=== PATIENT | male | born 1955 | race Caucasian/White ===

== ENCOUNTER 2017-06-12 17:45 | Inpatient (IN) | payer MEDICARE ==
[~2017-06-12] VITALS: Ht 167.6 cm; Wt 62.8 kg
--- NOTE | ~2017-06-12 | CON ---
PATIENT'S NAME: MARK CRISOSTOMO [facility] AGE: 61 Y [address] ROOM: [place] [address] LOCATION: GICU ADMIT DATE: 06/12/2017 Consultation DISCHARGE DATE: FAMILY PHYSICIAN: Radha Hicks DO ATTENDING PHYSICIAN: VIVI SHARP Date of consultation :06/12/2017 HISTORY OF PRESENT ILLNESS: A 61-year-old male found unresponsive, was started on CPR immediately by the bystanders. EMS was called, and he was taken to the nearest ED where he got intubated and had right subclavian line placed. He was started on multiple pressors, Levophed, dopamine, and epinephrine. The time to achieve return of spontaneous circulation was approximately 45 minutes. The rhythm was mostly asystole and not shockable. He was transferred to [facility] for further management. On arrival, the patient was completely unresponsive, off sedation, with a GCS score of 0. An urgent right axillary line was placed under ultrasound guidance for blood pressure management. PAST MEDICAL HISTORY: Unknown. PAST SURGICAL HISTORY: Unknown. VITAL SIGNS: Reviewed. REVIEW OF SYSTEMS: Could not be carried out completely except what mentioned in the HPI. PHYSICAL EXAMINATION: NEURO: Pupils bilaterally 6 to 7 mm, fixed. No gag reflex. Does not withdraw to pain. No spontaneous eye opening. RESPIRATORY: Bilaterally equal air entry. No rhonchi or rales. CVS: S1, S1 regular. ABDOMEN: Soft. Bowel sounds heard. EXTREMITIES: No edema. LABORATORY DATA: Available labs showed pH was 6.8, pCO2 of 77. Lactate of 7. Rest of the labs are pending at this moment. Chest x-ray reviewed. No obvious infiltrate, pneumothorax, or pleural effusion. ET is in place. ASSESSMENT AND PLAN: 1. Neurology: Started on targeted temperature management with a goal temperature less than or equal to 36 degrees for the next [address] head without contrast when hemodynamically stable. PATIENT'S NAME: MARK CRISOSTOMO [facility] AGE: 61 Y [address] ROOM: [place] [address] LOCATION: GICU ADMIT DATE: 06/12/2017 Consultation DISCHARGE DATE: FAMILY PHYSICIAN: Radha iHcks DO ATTENDING PHYSICIAN: VIVI SHARP 2. Respiratory: Continue mechanical ventilation at [facility] with tidal volume of 500 mL, respiratory rate 16 per minute, PEEP 5, FiO2 of 40%. Last ABG showed elevated pCO2 to 77. Respiratory rate was adjusted. Plan is to repeat ABG in 1 hour. Review of chest x-ray did not reveal any pneumothorax, infiltrate, or effusion. 3. Cardiovascular: EKG did not show any evidence of ST elevation. Bedside echo was reviewed with the information systems technician, which showed left ventricular contractility was moderate on 3 vasopressors. There was no evidence of any right ventricular dilatation. Inferior vena cava was collapsible. Monitor cardiac enzymes and EKG q.6 hours for the next 24 hours. Follow up Cardiology. 4. Infectious disease: No acute issues. Clear chest x-ray. 5. Gastrointestinal: Keep n.p.o. for now. 6. Renal and electrolytes: Received 3 liters of fluid at the [facility]. We will give 1 more liter. 7. Severe metabolic acidosis, probably secondary to type A lactic acidosis along with acute respiratory acidosis probably due to inadequate ventilation. We will optimize vent management. Bicarb 100 mEq IV push, which will help stabilize the blood pressure and will better action of the vasopressors. May start D5 with 100 mEq of sodium bicarbonate, at 75 mL per hour until serum bicarb reaches 18 mEq or more to keep potassium more than 4 mEq and magnesium 2 mEq. Problem List : Altered mental status/ Unresponsive following cardiac arrest on targeted temperature management Acute hypoxic respiratory failure S/p Cardiac arrest Probably cardiogenic shock Severe metabolic acidosis Critical care time excluding procedure time is 45 minutes. MD DIGNA BISWAS/rao /[id number] d: 06/13/17136 t: 06/25/17 1003, CONSULTATION REPORT
--- NOTE | ~2017-06-12 | OR ---
PATIENT'S NAME: MARK CRISOSTOMO [facility] AGE: 61 Y [address] ROOM: [place] [address] LOCATION: GICU ADMIT DATE: 06/12/2017 OR/Procedure Report DISCHARGE DATE: 06/13/2017 FAMILY PHYSICIAN: Radha Hicks DO ATTENDING PHYSICIAN: VIVI SHARP SURGEON: Armand Barraza MD LAMP STACK DEVELOPER: DATE OF PROCEDURE: 06/12/2017 PROCEDURE PERFORMED: Right axillary A-line. INDICATIONS: On multiple pressors. CONSENT: Not obtained since was performed urgently. PROCEDURE DETAILS: Right axillary arterial line was placed with ultrasound guidance, with strict aseptic precaution. The area was cleaned with chlorhexidine. Ultrasound was used to localized the right axillary artery. The needle was introduced to the artery after obtaining good blood flow. Guidewire was advanced and the arterial catheter was laid over the guidewire. No immediate complications were noted. Good waveform was obtained on the monitor. The line was secured to place. ARMAND BARRAZA MD MG/modl /[id number] d: 06/13/17 0018 t: 06/20/17 1627, OPERATIVE SUMMARY
--- NOTE | ~2017-06-12 | CON ---
PATIENT'S NAME: MARK BALL [facility] AGE: 61 Y [address] ROOM: [address] [place], [place] [address] LOCATION: GICU ADMIT DATE: 06/12/2017 Consultation DISCHARGE DATE: 06/13/2017 FAMILY PHYSICIAN: Radha Hicks DO ATTENDING PHYSICIAN: Jacob Persaud DATE OF CONSULTATION: 06/12/[address] Flores. Dear Dr. Flores: Thank you for asking me to see Mr. Ball who is a 61-year-old male patient who had a witnessed arrest in [place]. He was initially found to be in asystole and resuscitative efforts were made and he had a down time of about 45 minutes. He was on multiple pressors when he came up here and his pupils were dilated and there were no brain stem reflexes. His echo showed normal EF without any wall motion abnormalities. His EF was low normal despite being on 3 pressors at least. There is no pericardial effusion. His EKG showed right bundle-branch block without any ST elevation. No history could be obtained as there were no family at this time and I think at this point, we will have to wait to see what his neurological recovery is before doing any other workup at this time. It appears as if he has a history of tobacco abuse in the past. It does not look like he had an HI in the past. MEDICATIONS: His medications when I saw him were: 1. Dopamine. 2. Levophed. 3. Epinephrine. 4. Vasopressin. ALLERGIES: UNKNOWN AT THIS TIME. PAST MEDICAL HISTORY: I do not have a good history of past medical illnesses at this time. SOCIAL HISTORY: The patient is a smoker. FAMILY HISTORY: PATIENT'S NAME: MARK BALL [facility] AGE: 61 Y [address] ROOM: [id number] [place], [place] [address] LOCATION: CU ADMIT DATE: 06/12/2017 Consultation DISCHARGE DATE: 06/13/2017 FAMILY PHYSICIAN: Radha Hicks DO ATTENDING PHYSICIAN: Jacob Persaud No records available at this time and his family is supposed to be getting here shortly. PHYSICAL EXAMINATION: VITAL SIGNS: His blood pressure was 110 initially when I saw him, heart rate was in the 70s and regular. He was on the vent and was not on any sedation and he is deeply unconscious. HEART: His heart rate was normal with no definite elevation of JVD. There are no murmurs. CHEST: Clear. ABDOMEN: Soft. EXTREMITIES: Reveal no edema. ASSESSMENT: Post cardiac arrest. 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 Neurologically, it appears as if he may be quite badly off at this time. We will wait to see how he does. Given his IVC not being plethoric, I would recommend additional albumin and IV fluids and I have discussed that with Dr. Persaud. Obviously, we will rule him out overnight and see how he overall looks tomorrow morning. Again, I appreciate this opportunity to participate in the care of Mr. Ball. MD JOYCE KENT/rao /[id number] d: 06/13/17 1155 t: 06/14/17 1304, CONSULTATION REPORT
--- NOTE | ~2017-06-12 | DS ---
PATIENT'S NAME: MARK CRISOSTOMO [facility] AGE: 61 Y [address] ROOM: [address] [place], [place] [address] LOCATION: [facility] ADMIT DATE: 06/12/2017 Discharge Summary DISCHARGE DATE: FAMILY PHYSICIAN: Radha Hicks DO ATTENDING PHYSICIAN: Jacob Persaud [facility]: The patient in this hospitalization. A 61-year- old gentleman who was brought in on 06/12/2017 after having cardiac arrest. He was down for 45 minutes with the CPR going on. Initial rhythm was asystole and after administration of epi, sinus bradycardia, and then sinus tachycardia after administration of atropine. No sedatives or paralytics were used. Initial examination on arrival to the hospital was fixed dilated pupils, no brainstem reflexes, and GCS of 3/15. The patient was intubated at the outside hospital with no respiratory effort at that point. Support lines were obtained and the patient was found to be in shock. Multiple pressor agents were used. Stat echocardiography was done, which did show good cardiac function on multiple pressors including dopamine, Levophed, epinephrine, vasopressin, and phenylephrine. Cardiology consultation was made and they wanted to see how the patient does overnight before taking him to the [facility]. Over the course of night, the patient's condition deteriorated in terms of hemodynamics and despite aggressive fluid resuscitation, correction of acidosis, and optimizing ventilations, pressures were not able to be maintained, and after talking with the family the patient was made DNR/DNI and compassionately extubated. The patient on 06/13/2017 at 05:37 in the morning. PRINCIPAL DIAGNOSIS: Postcardiac arrest. SECONDARY DIAGNOSES: 1. Shock, undifferentiated. 2. Acute kidney injury. 3. Rhabdomyolysis. 4. Severe metabolic/respiratory acidosis. 5. Acute hypoxic and hypercapnic respiratory failure. 6. Acute metabolic anoxic encephalopathy. MD DOM CISSE/rao /[id number] d: 08/01/25 847 t: 06/14/17 0904, DISCHARGE SUMMARY
--- NOTE | ~2017-06-12 | HP ---
PATIENT'S NAME: MARK CRISOSTOMO [facility] AGE: 61 Y [address] ROOM: [place] [address] LOCATION: [facility] ADMIT DATE: 06/12/2017 History & Physical DISCHARGE DATE: FAMILY PHYSICIAN: Radha Hicks DO ATTENDING PHYSICIAN: VIVI SHARP DATE OF SERVICE: CHIEF COMPLAINT: Post Code Blue, post cardiac arrest. HISTORY OF PRESENT ILLNESS: A 61-year-old gentleman with only known medical history to us is heavy smoking and some cardiac issues, went unresponsive in a witness setting and CPR was started when pulse was not found. EMS was called. 10 minutes of CPR was already in progress, and EMS put a glucose device on the patient. The patient was taken to the hospital. 1 mg of epinephrine was given and return of spontaneous circulation was achieved. Initial EKGs showed sinus bradycardia with right bundle-branch block without any ST-T wave changes. He was given 1 mg of epinephrine. He was transferred here for further medical care. Before transfer, a right subclavian central line was placed and the patient was intubated. On arrival to our facility, he was on multiple pressors including dopamine and Levophed, still we were not able to get any blood pressure on him. We got an art line and with multiple pressors, we got some blood pressure on him. REVIEW OF SYSTEMS: I attempted to obtain review of systems from the paramedics and the transferring hospital, and none could be found at this point. ALLERGIES: WE DO NOT KNOW ANY DRUG ALLERGIES ON THIS PATIENT. SOCIAL HISTORY: It appears that the patient is a heavy smoker. FAMILY HISTORY: I attempted to obtain family history from the transferring physician and the EMT staff, could not find any. No records are available in our hospital. MEDICATIONS: Being reconciled right now, once available. PHYSICAL EXAMINATION: VITAL SIGNS: Blood pressure on 4 multiple pressors shows 125/82. Art line PATIENT'S NAME: MARK CRISOSTOMO [facility] AGE: 61 Y [address] ROOM: [place] [address] LOCATION: [facility] ADMIT DATE: 06/12/2017 History & Physical DISCHARGE DATE: FAMILY PHYSICIAN: Radha Hicks DO ATTENDING PHYSICIAN: VIVI SHARP satting 96% on ventilator with FiO2 of 100%. Respiratory rate of 12. No spontaneous respiratory effort noted. Afebrile. GENERAL: Deeply comatose at this point. GCS 3/15. CARDIOVASCULAR: S1 and S2. No murmurs, gallops, or rubs. LUNGS: Clear to auscultation bilaterally. ABDOMEN: Soft, nontender, and nondistended. Bowel sounds are present. EXTREMITIES: No clubbing, cyanosis, or edema. PSYCHIATRIC: Cannot be assessed at this point. NEUROLOGIC: Fixed dilated pupils. No gag reflex or cough reflex could be elicited. GCS 3/15. EXTREMITIES: No clubbing, cyanosis, or edema. Cachectic extremities. SKIN: Very dry skin. No blemishes or bruise noted. ENDOCRINE: No cushingoid features or thyromegaly noted. LYMPHATICS: No lymphangitis or lymphadenopathy noted. LABORATORY DATA: Lab work as mentioned in the HPI, EKG showed sinus tachycardia with right bundle-branch without any acute ST-T wave changes. Rest of the lab work is in progress right now. The transferring facility lab work showed potassium of 5.7 and creatinine of 7, CPK 1920. We are going to obtain all the appropriate lab work including ABG, CBC, BMP, lactic acid. A CT scan of the head, ASSESSMENT/PLAN: POST CARDIAC ARREST SHOCK, Undifferentiated ROSITA RHADOMYOLYSIS SEVERE METABOLIC/RESPIRATOY ACIDOSIS ACUTE HYPOXIC HYPERCAPNIC REPSIRATORY FAILURE. ACUTE METABOLIC/ANOXIC ENCEPHALOPATHY Cardiology and Intensive Care consultation has been made for targeted temperature management and a possible left heart catheterization. Aggressive fluid resusitation. Correction of electrolyte abnormalities.Correction of hypercapnia. Further management will depend on his progress in the hospital.Titrate and add pressors. MD DOM CISSE/rao /[id number] D: [id number] T: 832 HISTORY & PHYSICAL
--- NOTE | ~2017-06-12 | ECHO ---
Transthoracic Echocardiography Report (TTE) Demographics Patient Name MARK CRISOSTOMO Date of Study 06/12/2017 Patient Number [id number] Visit Number [id number] Date of 1955 Room Number G6214 Accession Number [id number] Gender Male Age 61 year(s) Referring Kurt Espinosa International Relations Teacher Werner English RVT Physician DO Cori Ly MD Physician Interpreting Pablitopage hospitalhector Shoe Treer Physician Bren SANTIZO Supervising Ordering Physician Cori Ly MD/LUNAP Nurse Stress Composition Weatherboard Applier Conclusions Contractility Score Summary Normal Left Ventricular contractility was noted. Summary Technically difficult exam. The estimated left ventricular ejection fraction is 50-55% with normal internal dimension and WM.Moderate concentric left ventricular hypertrophy. Mildly reduced right ventricular function. Procedure Type of Study TTE procedure:2D Echocardiogram. Procedure Date Date: 06/12/2017 Start: 06:14 PM Study Location: Inpatient Portable Technical Quality: Limited visualization due to patient immobility. Indications:Post Code. Appropriate Use Criteria: 9 Patient Status: STAT HR: 69 bpm M-Mode/2D Measurements LV Diastolic Dimension: 3.8 cm LV Systolic Dimension: 3 cm LV Septum Diastolic: 1.5 cm LV PW Diastolic: 1.3 cm AO Root Dimension: 2.6 cm Cardiac Output: 2.19 l/min AV Cusp Separation: 1.9 cm LA Dimension: 3.86 cm LVOT: 2 cm RV Base: 2.25 cm LVOT VTI: 10.1 cm RV Mid: 1.77 cm LV Stroke volume: 31.71 ml RV Length: 5.98 cm TAPSE: 1.31 cm TDI-S': 8.44 cm/s Doppler Measurements AV Peak Velocity: 0.64 m/s MV Peak E-Wave: 0.7 m/s AV Peak Gradient: 1.62 mmHg MV Peak A-Wave: 0.66 m/s AV Mean Gradient: 1 mmHg MV E/A Ratio: 1.07 LVOT Peak Velocity: 0.57 m/s MV P1/2t: 68 msec PV Peak Velocity: 0.63 m/s E' Septal Velocity: 0.06 m/s PV Peak Gradient: 1.56 mmHg A' Septal Velocity: 0.09 m/s Findings Left Ventricle Moderate concentric left ventricular hypertrophy with normal internal dimensions,low normal EF and normal WM. Diastolic function indeterminate due to patient's arrhythmia. Right Ventricle Mildly reduced right ventricular function. Left Atrium Normal left atrial size. Right Atrium Normal right atrial size. Mitral Valve The mitral valve is not well imaged. Aortic Valve The aortic valve was not well imaged. Tricuspid Valve Normal tricuspid valve structure and function. Pulmonic Valve Normal pulmonic valve structure and function. Pericardial Effusion No evidence of pericardial effusion. Miscellaneous Visualized portions of the aortic root and ascending aorta appear normal in size. Pleural Effusion No evidence of pleural effusion. Contractility Score LV regional wall motion:(0-Non visualized 1-Normal 2-Hypokinesis 3-Akinesis 4-Dyskinesis 5-Aneurysm) Signature dtt: Bren Matthews dtd: 06/12/17 1814 Physician Self Edit
[2017-06-12 18:56] LABS: PO2 211 mmHg (80-90)
[2017-06-12 19:07] LABS: HEMATOCRIT 39.3 % (37.0-53.0); HEMOGLOBIN 13.1 g/dL (11.0-16.0); MCH 34.7 pg (27.0-34.0); MCHC 33.3 gm/dL (32.0-36.5); MCV 104.2 fl (83.0-98.0); MPV 10.6 fl (9.4-12.4); PLATELET COUNT 376 K/uL (150-450); RBC 3.77 M/uL (3.50-5.50)
[2017-06-12 19:08] LABS: WBC 19.8 K/uL (4.0-11.0)
[2017-06-12 19:09] LABS: PCO2 77 mmHg (35-45)
[2017-06-12 19:10] LABS: BICARBONATE 11.9 mmol/L (18.0-23.0)
[2017-06-12 19:16] LABS: INR - (THERAPEUTIC) 1.25 (0.92-1.07); PROTIME 13.2 SECONDS (9.8-11.4)
[2017-06-12 19:38] LABS: TOTAL BILIRUBIN 0.7 mg/dL (0.0-1.5); TOTAL PROTEIN 6.1 g/dL (6.0-8.4)
[2017-06-12 19:41] LABS: ALBUMIN 1.9 gm/dL (3.5-5.0); CALCIUM 6.1 mg/dL (8.5-10.5); CREATININE 7.4 mg/dL (0.6-1.3)
[2017-06-12 19:54] LABS: ABSOLUTE NEUTROPHIL CT (ANC) 13.1 K/uL (1.4-9.0); BANDED NEUTROPHILS % 20 %; LYMPHOCYTE # 6.5 K/uL (0.8-4.0); LYMPHOCYTE % 21 %; MONOCYTE # 0.2 K/uL (0.0-1.0); SEGMENTED NEUTROPHIL # 9.1 K/uL (1.4-9.0); SEGMENTED NEUTROPHIL % 46 %
[2017-06-12 20:26] LABS: HEMOGLOBIN 11.2 g/dL (11.0-16.0); MCH 34.3 pg (27.0-34.0); MCHC 33.9 gm/dL (32.0-36.5); MCV 100.9 fl (83.0-98.0); MPV 10.5 fl (9.4-12.4); RBC 3.27 M/uL (3.50-5.50); RDW-CV 14.8 % (11.9-14.6); WBC 11.9 K/uL (4.0-11.0)
[2017-06-12 20:27] LABS: PCO2 65 mmHg (35-45); PO2 222 mmHg (80-90)
[2017-06-12 20:35] LABS: BICARBONATE 15.3 mmol/L (18.0-23.0)
[2017-06-12 20:44] LABS: PLATELET COUNT 264 K/uL (150-450)
[2017-06-12 20:51] LABS: ALBUMIN 2.9 gm/dL (3.5-5.0); POTASSIUM 5.2 mMol/L (3.7-5.1); TOTAL BILIRUBIN 0.8 mg/dL (0.0-1.5)
[2017-06-12 20:54] LABS: ANION GAP 29.2 (10.0-19.0)
[2017-06-12 20:55] LABS: CREATININE 6.8 mg/dL (0.6-1.3)
[2017-06-12 20:56] LABS: CALCIUM 5.4 mg/dL (8.5-10.5)
[2017-06-12 21:37] LABS: BANDED NEUTROPHIL # 2.4 K/uL (0.0-0.1); BANDED NEUTROPHILS % 20 %; LYMPHOCYTE # 3.2 K/uL (0.8-4.0); LYMPHOCYTE % 20 %; MONOCYTE # 0.6 K/uL (0.0-1.0); SEGMENTED NEUTROPHIL # 5.6 K/uL (1.4-9.0); SEGMENTED NEUTROPHIL % 47 %
[2017-06-12 21:44] LABS: PTT 47 SECONDS (25-32)
[2017-06-12 21:46] LABS: MAGNESIUM 2.4 mg/dL (1.8-2.6)
[2017-06-12 22:18] LABS: PHOSPHORUS > 18.0 mg/dL (2.5-4.9)
[2017-06-13] MEDS ORDERED: TRIAMCINOLONE454 GM (00:11)
[2017-06-13] MEDS ORDERED: ZESTRIL40 MG PO (00:13)
[2017-06-13] MEDS ORDERED: NORVASC5 MG PO (00:13)
[2017-06-13] MEDS ORDERED: ZOLOFT100 MG PO (00:14)
[2017-06-13] MEDS ORDERED: NAPROSYN500 MG PO (00:15)
[2017-06-13] MEDS ORDERED: SINGULAIR10 MG PO (00:16)
[2017-06-13] MEDS ORDERED: SUDOGEST60 MG PO (00:17)
[2017-06-13] MEDS ORDERED: PRILOSEC20 MG PO (00:18)
[2017-06-13] MEDS ORDERED: LIPITOR40 MG PO (00:18)
[2017-06-13] MEDS ORDERED: VITAMIN D50000 UNIT PO (00:19)
[2017-06-13] MEDS ORDERED: TENORMIN50 MG PO (00:20)
[2017-06-13] MEDS ORDERED: JANUMET 50-5001 EACH PO (00:21)
[2017-06-13] MEDS ORDERED: HYDRODIURIL25 MG PO (00:21)
[2017-06-13] MEDS ORDERED: LYRICA200 MG PO (00:21)
[2017-06-13] MEDS ORDERED: NORCO 7.5-3251 EACH PO (00:22)
[2017-06-13] MEDS ORDERED: AGGRENOX 25 MG1 EACH PO (00:23)
[2017-06-13] MEDS ORDERED: COMBIVENT RESPIM4 GM (00:23)
[2017-06-13] MEDS ORDERED: FLOVENT 220 M220 MCG (00:24)
[2017-06-13] MEDS ORDERED: XOPENEX HF45 MCG/INH (00:24)
[2017-06-13 01:37] LABS: BICARBONATE 23.6 mmol/L (18.0-23.0); PCO2 71 mmHg (35-45); PO2 58 mmHg (80-90)
== END 2017-06-13 05:37 | disposition expired | DRG 296 ==
LOC: GICU 17:45
PROVIDERS: Internal Medicine; Internal Medicine Critical Care Medicine; ADMIT Internal Medicine
PROC: B246ZZZ Ultrasonography of Right and Left Heart (ICD-10-PCS; principal; 2017-06-12)
PROC: 03H533Z Insertion of Infusion Device into Right Axillary Artery, Percutaneous Approach (ICD-10-PCS; principal; 2017-06-12)
DX: I46.9 Cardiac arrest, cause unspecified (principal); G93.41 Metabolic encephalopathy; J96.01 Acute respiratory failure with hypoxia; R57.9 Shock, unspecified; E87.2 Acidosis; G93.1 Anoxic brain damage, not elsewhere classified; M62.82 Rhabdomyolysis; N17.9 Acute kidney failure, unspecified
CPT/HCPCS: J0171; J0610; J1265; J1720; J2270; J2370; J3475; J7030; J7040; J7050; J7060; J7120; P9045; P9047

== ENCOUNTER → 2017-06-12 | Outpatient (CLI) | payer MEDICARE ==
[~2017-06-12] MED LIST: AGGRENOX 25 MG1 EACH PO; COMBIVENT RESPIM4 GM; FLOVENT 220 M220 MCG; HYDRODIURIL25 MG PO; JANUMET 50-5001 EACH PO; LIPITOR40 MG PO; LYRICA200 MG PO; NAPROSYN500 MG PO; NORCO 7.5-3251 EACH PO; NORVASC5 MG PO; PRILOSEC20 MG PO; SINGULAIR10 MG PO; SUDOGEST60 MG PO; TENORMIN50 MG PO; TRIAMCINOLONE454 GM; VITAMIN D50000 UNIT PO; XOPENEX HF45 MCG/INH; ZESTRIL40 MG PO; ZOLOFT100 MG PO
== END | disposition disaster alternative care site (69) ==
LOC: GAIR 17:21
DX: I46.9 Cardiac arrest, cause unspecified (principal); J44.9 Chronic obstructive pulmonary disease, unspecified; E11.9 Type 2 diabetes mellitus without complications; I95.9 Hypotension, unspecified; Z86.73 Personal history of transient ischemic attack (TIA), and cerebral infarction without residual deficits
CPT/HCPCS: A0422; A0431; A0436; J7030; J7050